=== PATIENT | male | born 1935 | race Caucasian/White ===

== ENCOUNTER 2018-02-14 11:16 | Inpatient (IN) | payer OTHER ==
[2018-02-14] MEDS ORDERED: NA CHLORIDE 0.9% 1,000 ML ONE ×2 (12:03→13:32)
[2018-02-14 12:13] LABS: Absolute Lymphocytes (CBC) 0.6 K/uL (0.7-4.9); Absolute Monocytes 0.8 K/uL (0.1-1.3); Absolute Neutrophil 14.9 K/uL (1.8-8.0); Basophils % 0.3 % (0-1.3); Hematocrit 38.5 % (39.6-49.0); Lymphocytes % 3.9 % (15.3-44.8); MCV 95.7 fL (80-100); MPV 9.9 fL (7.6-11.3); Monocytes % 4.7 % (3.3-12.3); RBC Red Blood Cell Count 4.02 M/uL (4.33-5.43)
[2018-02-14 12:19] LABS: Protime INR 1.13
--- NOTE | 2018-02-14 12:24 | RAD REPORT ---
EXAM DESCRIPTION: RAD - Chest Single View - 02/14/2018 12:15 pm CLINICAL HISTORY: MALAISE Chest pain. COMPARISON: Chest Single View dated 08/17/2016 FINDINGS: Portable technique limits examination quality. The lungs are grossly clear. The heart is normal in size. No displaced fractures. IMPRESSION: No acute intrathoracic process suspected.
[2018-02-14] MEDS ORDERED: CEFTRIAXONE/SWI 1gm 1 GM/10 ML SYR ONE (12:44)
[2018-02-14 12:54] LABS: Urine Bacteria LOADED /HPF (NONE SEEN)
[2018-02-14 12:55] LABS: Urine White Blood Cell Casts DIFF
[2018-02-14 12:55] LABS: Urine Culture Reflex Order NOT NEEDED; Urine Mucus 1+ /HPF (NONE SEEN)
[2018-02-14 12:57] LABS: Blood Morphology Comment NOT SEEN (NOT SEEN); Platelet Estimate ADEQ
--- NOTE | 2018-02-14 13:10 | EDPHYS ---
Physician Documentation [facility] Name: Quang Macedo Age: 82 yrs Sex: Male : 1935 Arrival Date: 02/14/2018 Time: 11:24 Bed 8 Private MD: ED Physician Sravan Hillman HPI: 02/14 13:04 This 82 yrs old Male presents to ER via EMS with complaints of General gs Weakness. 13:04 The patient presents to the emergency department with weakness of the entire body, gs generalized weakness. Onset: The symptoms/episode began/occurred 3 day(s) ago, and became worse and became persistent. Associated signs and symptoms: Pertinent positives: altered mental status. Severity of symptoms: At their worst the symptoms were moderate in the emergency department the symptoms are unchanged. Patient's baseline: Neuro: alert but confused. The patient has experienced similar episodes in the past, a few times. Historical: - Allergies: 11:49 No Known Allergies; ae1 - Home Meds: 11:50 Proscar Oral [Active]; aspirin 81 mg Oral chew 1 tab once daily [Active]; ae1 - PMHx: 14:20 BPH; High Cholesterol; jl7 - PSHx: 14:20 Hernia repair; hemorrhoidectomy; cataract surgery; jl7 - Immunization history:: Adult Immunizations up to date. - Ebola Screening: : Patient denies exposure to infectious person Patient denies travel to an Ebola-affected area in the 21 days before illness onset. - Social history:: Smoking status: Patient/guardian denies using tobacco. ROS: 13:04 All other systems are negative. gs Exam: 13:04 Head/Face: Normocephalic, atraumatic. Eyes: Pupils equal round and reactive to light, gs extra-ocular motions intact. Lids and lashes normal. Conjunctiva and sclera are non-icteric and not injected. Cornea within normal limits. Periorbital areas with no swelling, redness, or edema. ENT: Nares patent. No nasal discharge, no septal abnormalities noted. Tympanic membranes are normal and external auditory canals are clear. Oropharynx with no redness, swelling, or masses, exudates, or evidence of obstruction, uvula midline. Mucous membranes moist. Neck: Trachea midline, no thyromegaly or masses palpated, and no cervical lymphadenopathy. Supple, full range of motion without nuchal rigidity, or vertebral point tenderness. No Meningismus. Chest/axilla: Normal chest wall appearance and motion. Nontender with no deformity. No lesions are appreciated. Cardiovascular: Regular rate and rhythm with a normal S1 and S2. No gallops, murmurs, or rubs. Normal PMI, no JVD. No pulse deficits. Respiratory: Lungs have equal breath sounds bilaterally, clear to auscultation and percussion. No rales, rhonchi or wheezes noted. No increased work of breathing, no retractions or nasal flaring. Back: No spinal tenderness. No costovertebral tenderness. Full range of motion. Skin: Warm, dry with normal turgor. Normal color with no rashes, no lesions, and no evidence of cellulitis. MS/ Extremity: Pulses equal, no cyanosis. Neurovascular intact. Full, normal range of motion. 13:04 Constitutional: The patient appears awake, confused 13:04 ECG was reviewed by the Attending Physician. 13:04 Abdomen/GI: Inspection: distension, that is moderate, in the suprapubic area, Palpation: abdomen is soft and non-tender. 13:04 Neuro: Orientation: Not oriented to time, situation, Motor: is normal, moves all fours, Sensation: no obvious gross deficits. Vital Signs: 11:24 BP 133 / 85; Pulse 91; Resp 16 S; Temp 98.6(O); Pulse Ox 98% on R/A; jl7 12:38 BP 124 / 72; Pulse 78; Resp 21; Pulse Ox 99% on R/A; ae1 13:25 Temp 99(O); Weight 77.11 kg (R); ae1 13:37 BP 117 / 69; Pulse 94; Resp 17; Pulse Ox 98% on R/A; ae1 14:13 BP 115 / 72; Pulse 93; Resp 13; Pulse Ox 98% ; jl7 MDM: 11:43 Patient medically screened. 13:04 Data reviewed: vital signs. Response to treatment: the patient's symptoms have mildly gs improved after treatment, and as a result, I will admit patient. 02/14 11:45 Order name: Urine Microscopic Only; Complete Time: 13:02 02/14 11:45 Order name: Urine Culture 02/14 11:45 Order name: Basic Metabolic Panel 02/14 11:45 Order name: Blood Culture Adult (2) 02/14 11:45 Order name: CBC with Diff; Complete Time: 13:02 02/14 11:45 Order name: Lactate 02/14 11:45 Order name: LFT's 02/14 11:45 Order name: Lipase 02/14 11:45 Order name: Procalcitonin; Complete Time: 13:02 02/14 11:45 Order name: Protime (+inr); Complete Time: 13:02 02/14 11:45 Order name: Troponin (emerg Dept Use Only) 02/14 12:18 Order name: CBC Smear Scan [facility] 02/14 12:49 Order name: Urine Dipstick--Ancillary (enter results) 02/14 12:50 Order name: Urine Dipstick-Ancillary [facility] 02/14 11:45 Order name: Chest Single View XRAY; Complete Time: 13:02 02/14 11:45 Order name: Accucheck; Complete Time: 11:50 02/14 11:45 Order name: Cardiac monitoring; Complete Time: 11:51 02/14 11:45 Order name: EKG - Nurse/Tech; Complete Time: 11:51 02/14 11:45 Order name: IV Saline Lock - Large Bore; Complete Time: 11:51 02/14 11:45 Order name: Labs collected and sent; Complete Time: 11:51 02/14 11:45 Order name: O2 Per Protocol; Complete Time: 11:51 02/14 11:45 Order name: O2 Sat Monitoring; Complete Time: 11:52 02/14 12:56 Order name: Manual Differential; Complete Time: 13:02 [facility] 02/14 12:59 Order name: EKG Electrocardiogram [facility] 02/14 13:15 Order name: NPO [facility] 02/14 15:11 Order name: Glucose, Ancillary Testing [facility] 02/14 11:45 Order name: Urine Dipstick-Ancillary (obtain specimen); Complete Time: 12:35 EC:04 Rate is 86 beats/min. Rhythm is regular. FL interval is normal. QRS interval is normal. gs T waves are Normal. No ST changes noted. Clinical impression: Abnormal EKG without significant change. Interpreted by me. Administered Medications: 12:00 Drug: NS 0.9% 1000 ml Route: IV; Rate: 1 bolus; Site: right forearm; ae1 13:33 Follow up: IV Status: Completed infusion ae1 12:46 Drug: Rocephin - (cefTRIAXone) 1 grams Route: IVPB; Infused Over: 30 mins; Site: right ae1 forearm; 13:20 Follow up: IV Status: Completed infusion ae1 13:33 Drug: NS 0.9% 1000 ml Route: IV; Rate: 1 bolus; Site: right forearm; ae1 14:30 Follow up: IV Status: Completed infusion jl7 14:05 Drug: Tobramycin 80 mg Route: IVPB; Infused Over: 30 mins; Site: right forearm; jl7 14:35 Follow up: Response: No adverse reaction; IV Status: Completed infusion jl7 Point of Care Testing: Blood Glucose: 11:49 Blood Glucose: 111 mg/dL; ae1 Ranges: Critical Glucose Levels:Adult <50 mg/dl or >400 mg/dl <40 mg/dl or >180 mg/dl Disposition: 02/14/18 13:09 Hospitalization ordered by Delon Shields for Inpatient Admission. Preliminary diagnosis are Other specified sepsis, Acute tubulo-interstitial nephritis. - Bed requested for Telemetry/MedSurg (Inpatient). - Status is Inpatient Admission. ae1 - Condition is Stable. - Problem is new. - Symptoms have improved. UTI on Admission? Yes Critical care time excluding procedures: 13:04 Critical care time: Bedside Care: 10 minutes, Consultation: 10 minutes, Family gs Intervention: 10 minutes. Total time: 30 minutes Signatures: Dispatcher [employer] EDMS Pati Corrales Andrea, RN RN ae1 Melyssa Guerrier RN RN jl7 Sravan Hillman MD MD gs Corrections: (The following items were deleted from the chart) 14:03 13:09 Hospitalization Ordered by Delon Shields MD for Inpatient Admission. Preliminary bd diagnosis is Other specified sepsis; Acute tubulo-interstitial nephritis. Bed requested for Telemetry/MedSurg (Inpatient). Status is Inpatient Admission. Condition is Stable. Problem is new. Symptoms have improved. UTI on Admission? Yes. gs 15:21 14:03 02/14/2018 13:09 Hospitalization Ordered by Delon Shields MD for Inpatient ae1 Admission. Preliminary diagnosis is Other specified sepsis; Acute tubulo-interstitial nephritis. Bed requested for Telemetry/MedSurg (Inpatient). Status is Inpatient Admission. Condition is Stable. Problem is new. Symptoms have improved. UTI on Admission? Yes. bd
--- NOTE | 2018-02-14 13:10 | ER ---
Nurse's Notes [facility] Name: Quang Macedo Age: 82 yrs Sex: Male : 1935 Arrival Date: 02/14/2018 Time: 11:24 Bed 8 Private MD: Diagnosis: Other specified sepsis;Acute tubulo-interstitial nephritis Presentation: 02/14 11:24 Presenting complaint: EMS states: Pt's reports weakness for the past 2 days. She jl7 thinks he has a kidney infection. Pt has an indwelling catheter. Transition of care: patient was not received from another setting of care. Onset of symptoms was February 12, 2018. Risk Assessment: Do you want to hurt yourself or someone else? Patient reports no desire to harm self or others. Initial Sepsis Screen: Does the patient meet any 2 criteria? No. Patient's initial sepsis screen is negative. Does the patient have a suspected source of infection? No. Patient's initial sepsis screen is negative. Care prior to arrival: Medication(s) given: Normal saline infusion, 150 ml IV initiated. 22 GA, in the left antecubital area, Glucose check: 140. 11:24 Method Of Arrival: EMS: [facility] jl7 11:24 Acuity: MELODIE 3 jl7 Historical: - Allergies: 11:49 No Known Allergies; ae1 - Home Meds: 11:50 Proscar Oral [Active]; aspirin 81 mg Oral chew 1 tab once daily [Active]; ae1 - PMHx: 14:20 BPH; High Cholesterol; jl7 - PSHx: 14:20 Hernia repair; hemorrhoidectomy; cataract surgery; jl7 - Immunization history:: Adult Immunizations up to date. - Ebola Screening: : Patient denies exposure to infectious person Patient denies travel to an Ebola-affected area in the 21 days before illness onset. - Social history:: Smoking status: Patient/guardian denies using tobacco. Screenin:39 Abuse screen: Denies threats or abuse. Nutritional screening: No deficits noted. ae1 Tuberculosis screening: No symptoms or risk factors identified. Fall Risk No fall in past 12 months (0 pts). Secondary diagnosis (15 points) dementia, IV access (20 points). Ambulatory Aid- None/Bed Rest/Nurse Assist (0 pts). Gait- Weak (10 pts.). Mental Status- Overestimates/Forgets Limitations (15 pts.). Assessment: 11:30 General: Appears uncomfortable, slender, unkempt, Behavior is cooperative, anxious, ae1 Smells of urine. Pain: Unable to use pain scale. Patient is disoriented. Neuro: Level of Consciousness is awake, confused, Oriented to person. Cardiovascular: Heart tones S1 S2 present Patient's skin is warm and dry. Respiratory: Airway is patent Respiratory effort is even, unlabored, shallow, Respiratory pattern is regular, symmetrical. GI: Abdomen is round distended, Bowel sounds present X 4 quads. : Spencer catheter in place,no plugged, no drainage appliance in place. EENT: No signs and/or symptoms were reported regarding the EENT system. Patient appears [place] hearing aides in place. . Derm: Skin is pale. Musculoskeletal: Reports General weakness. 13:07 Reassessment: Patient appears more relaxed, is still at bedside. ae1 14:00 Reassessment: No changes from previously documented assessment. Patient and/or family jl7 updated on plan of care and expected duration. Pain level reassessed. Vital Signs: 11:24 BP 133 / 85; Pulse 91; Resp 16 S; Temp 98.6(O); Pulse Ox 98% on R/A; jl7 12:38 BP 124 / 72; Pulse 78; Resp 21; Pulse Ox 99% on R/A; ae1 13:25 Temp 99(O); Weight 77.11 kg (R); ae1 13:37 BP 117 / 69; Pulse 94; Resp 17; Pulse Ox 98% on R/A; ae1 14:13 BP 115 / 72; Pulse 93; Resp 13; Pulse Ox 98% ; jl7 ED Course: 11:24 Patient arrived in ED. jl7 11:27 Triage completed. jl7 11:38 Sravan Hillman MD is Attending Physician. gs 11:42 Melyssa Guerrier RN is Primary Nurse. jl7 11:53 EKG done, by helicopter technician. reviewed by Sravan Hillman MD. at1 12:09 X-ray completed. Portable x-ray completed in exam room. Patient tolerated procedure ag1 well. 12:10 Chest Single View XRAY In Process Unspecified. EDMS 12:35 Inserted saline lock: 22 gauge in right forearm, using aseptic technique. Blood jl7 collected. 12:35 Spencer cath inserted, using sterile technique, 16 Fr., by ky, balloon inflated, to ae1 gravity drainage, urine specimen collected. other 1500 mls dark brown cloudy urine drained into appliance collection bag. Existing Spencer catheter removed. Foul odor, purulent, and sanguineous discharge upon removal. 12:39 Placed in gown. Bed in low position. Call light in reach. Side rails up X2. Adult w/ ae1 patient. desk monitor on. Pulse ox on. NIBP on. Warm blanket given. Pillow given. 12:40 Arm band placed on right wrist. EKG completed in triage. Results shown to MD. ae1 13:08 Delon Shields MD is Hospitalizing Provider. gs 13:17 Notified ED physician of a critical lab result(s). Lactate=2.2. iw 14:43 No provider procedures requiring assistance completed. Patient admitted, IV remains in jl7 place. Administered Medications: 12:00 Drug: NS 0.9% 1000 ml Route: IV; Rate: 1 bolus; Site: right forearm; ae1 13:33 Follow up: IV Status: Completed infusion ae1 12:46 Drug: Rocephin - (cefTRIAXone) 1 grams Route: IVPB; Infused Over: 30 mins; Site: right ae1 forearm; 13:20 Follow up: IV Status: Completed infusion ae1 13:33 Drug: NS 0.9% 1000 ml Route: IV; Rate: 1 bolus; Site: right forearm; ae1 14:30 Follow up: IV Status: Completed infusion jl7 14:05 Drug: Tobramycin 80 mg Route: IVPB; Infused Over: 30 mins; Site: right forearm; jl7 14:35 Follow up: Response: No adverse reaction; IV Status: Completed infusion jl7 Point of Care Testing: Blood Glucose: 11:49 Blood Glucose: 111 mg/dL; ae1 Ranges: Outcome: 13:09 Decision to Hospitalize by Provider. gs 14:43 Admitted to Tele accompanied by tech, family with patient, via stretcher, room 413, jl7 with chart, Report called to RICK Chew 14:43 Condition: stable 14:43 Discharge instructions given to patient, family, Instructed on the need for admit, Demonstrated understanding of instructions. 15:21 Patient left the ED. ae1 Signatures: Dispatcher [employer] EDMS Mojgan Chery, RN RN iw Adela mckinney, car starter EKG Tat1 Riri Lama ag1 Justino Fields RN RN ae1 Melyssa Guerrier RN RN jl7 Sravan Hillman MD MD gs Corrections: (The following items were deleted from the chart) 13:34 13:10 Notified ED physician of a critical lab result(s). Lactate=2.2 [facility] 14:44 12:35 Inserted ae1 jl7
[2018-02-14] MEDS ORDERED: ACETAMINOPHEN 500 MG TAB PO PRN (13:13)
[2018-02-14 13:24] LABS: Albumin 3.7 g/dL (3.4-5.0); Bilirubin Direct 0.2 mg/dL (0-0.2); Bilirubin Total 0.7 mg/dL (0.2-1.0); Potassium 4.4 mmol/L (3.5-5.1); Protein, Total 7.3 g/dL (6.4-8.2)
[2018-02-14] MEDS: D5 0.45 NS 1,000 ML IV SCH ×3 (14:00→22:09)
[2018-02-14] MEDS ORDERED: TOBRAMYCIN INJ 80 MG in NA CHLORIDE 0.9% 100 ML IV ONE (14:00)
[2018-02-14 14:03] LABS: Urine Blood 2+ (NEG); Urine Glucose NEGATIVE (NEG); Urine Protein 3+ (NEG); Urine Specific Gravity 1.015 (1.005-1.030); Urine pH >8.5 (5.0-7.0)
--- NOTE | 2018-02-14 14:51 | EKG ---
Test Date: 2018-02-14 Test Time: 11:42:06 Bracelet Form Coverer: RAUL MEASUREMENT RESULTS: Intervals: Rate: 86 IA: 150 QRSD: 82 QT: 374 QTc: 447 [place]: P: 36 IA: 150 QRS: 14 T: 52 INTERPRETIVE STATEMENTS: Normal sinus rhythm Nonspecific ST and T wave abnormality Abnormal ECG Compared to ECG 08/11/2011 06:45:09 Sinus bradycardia no longer present ST (T wave) deviation still present Electronically Signed On 02-14-18 14:50:12 CDT by Alexis Johnson
[2018-02-14 17:08] VITALS: BMI 23.7
--- NOTE | 2018-02-14 18:17 | P.HP ---
Certification for Inpatient Patient admitted to: Inpatient With expected LOS: >2 Midnights Practitioner: I am a practitioner with admitting privileges, knowledge of patient current condition, hospital course, and medical plan of care. Services: Services provided to patient in accordance with Admission requirements found in Title 42 Section 412.3 of the Code of Federal Regulations Patient History Date of Service: 02/14/18 Reason for admission: CONFUSED, WEAK History of Present Illness: MR. CERVANTES COMES WITH CONFUSION, DISORIENTATION, WEAKNESS. HE HAS BAIG AND IT IS TO BE DRAINED . HE HAD RETENTION OF URINE ABOUT 11 ML AND UTI WITH SEVERE DEHYDRATION ON LAB. Allergies No Known Allergies Allergy (Verified 02/14/18 17:49) Home Medications: Aspirin Chewable [Aspirin Chewable*] 81 mg PO DAILY 02/14/18 Bacillus Coagulans [Probiotic] 1 each PO DAILY 02/14/18 Multivit-Min/FA/Lycopen/Lutein [Centrum Silver Men Tablet] 1 each PO DAILY 02/14 Simvastatin [Zocor] 80 mg PO BEDTIME 02/14/18 - Past Medical/Surgical History Has patient received pneumonia vaccine in the past: Yes Diabetic: No -: hyperlipidemia -: BPH -: DEMENTIA -: 3 hernia repair -: hemmroidectomy -: cataract sx [place] EYE - Social History Smoking Status: Never smoker Alcohol use: No CD- Drugs: No Caffeine use: Yes Place of Residence: Home Review of Systems 10-point ROS is otherwise unremarkable Integumentary: Other, As per HPI Neurological: Confusion Physical Examination - Vital Signs Temperature: 99 F Blood Pressure: 115/72 Pulse: 93 Respirations: 13 - Physical Exam General: Alert, Mild distress, Confused, Other (DEHYDRATION.) HEENT: Atraumatic, PERRLA, Mucous membr. moist/pink, EOMI, Sclerae nonicteric Neck: Supple, 2+ carotid pulse no bruit, No LAD, Without JVD or thyroid abnormality Respiratory: Clear to auscultation bilaterally, Normal air movement Cardiovascular: Regular rate/rhythm, Normal S1 S2 Gastrointestinal: Normal bowel sounds, No tenderness Musculoskeletal: No tenderness Integumentary: No rashes Neurological: Other Lymphatics: No axilla or inguinal lymphadenopathy - Studies Laboratory Data (last 24 hrs) 02/14/18 11:55: PT 13.3 H, INR 1.13 02/14/18 11:55: WBC 16.3 H, Hgb 12.9 L, Hct 38.5 L, Plt Count 201 02/14/18 11:55: Sodium 139, Potassium 4.4, BUN 63 H, Creatinine 2.30 H, Glucose 115 H, Total Bilirubin 0.7, AST 27, ALT 24, Alkaline Phosphatase 110, Lipase 55 L Assessment and Plan - Problems (Diagnosis) (1) UTI (urinary tract infection) Current Visit: Yes Status: Acute Plan: IV ROCEPHIN IV FLUIDS. Qualifiers: Indwelling urinary catheter type: indwelling urethral catheter (2) Acute renal failure Current Visit: Yes Status: Acute Plan: IV D5 HALF 125 ML PER HOUR DAILY LAB FU DAILY AVOID LOVENOX, HAS HEMATURIA (3) Acute retention of urine Onset Date: 08/17/16 Current Visit: No Status: Chronic Plan: DR PONCE FOR FU - Advance Directives Does patient have a Living Will: Yes Does patient have a Durable POA for Healthcare: Yes
[2018-02-15] MEDS: D5 0.45 NS 1,000 ML IV SCH ×3 (05:20→21:25)
[2018-02-15] MEDS: CEFTRIAXONE/SWI 1gm 1 GM/10 ML SYR IV SCH (09:17)
[2018-02-15] MEDS: ASPIRIN 81 MG CHEWABLE TABLET PO SCH (09:17)
--- NOTE | 2018-02-15 17:59 | P.PN ---
Subjective Date of Service: 02/15/18 Chief Complaint: CONFUSED, WEAK Subjective: Improving (still not able to recognize .) Review of Systems 10-point ROS is otherwise unremarkable General: Weakness, Malaise Physical Examination - Vital Signs Temperature: 99.1 F Blood Pressure: 136/65 Pulse: 84 Respirations: 18 Pulse Ox (%): 96 - Physical Exam General: Cachectic, Mild distress, Confused HEENT: Atraumatic, PERRLA, EOMI Neck: Supple, JVD not distended Respiratory: Clear to auscultation bilaterally, Normal air movement Cardiovascular: Regular rate/rhythm, Normal S1 S2 Gastrointestinal: Normal bowel sounds, No tenderness Musculoskeletal: No tenderness Integumentary: No rashes Neurological: Abnormal speech (sluggish.), Abnormal strength (gen weak.) Lymphatics: No axilla or inguinal lymphadenopathy - Studies Microbiology Data (last 24 hrs): 02/14/18 12:45 Blood - Blood Anaerobic Blood Culture - Final Medications List Reviewed: Yes Assessment And Plan - Current Problems (Diagnosis) (1) UTI (urinary tract infection) Current Visit: Yes Status: Acute Plan: IV ROCEPHIN IV FLUIDS. Qualifiers: Indwelling urinary catheter type: indwelling urethral catheter (2) Acute renal failure Current Visit: Yes Status: Acute Plan: IV D5 HALF 125 ML PER HOUR DAILY LAB FU DAILY AVOID LOVENOX, HAS HEMATURIA (3) Acute retention of urine Onset Date: 08/17/16 Current Visit: No Status: Chronic Plan: DR PONCE FOR FU (4) Alteration in cognition Current Visit: Yes Status: Acute Plan: He may have had a stroke in addition to obtundation from sepsis MRI pending.
[2018-02-15] MEDS ORDERED: LORazepam 2 MG/ML VIAL IV ONE (20:38)
--- NOTE | 2018-02-15 21:19 | RAD REPORT ---
EXAM DESCRIPTION: MRI - Brain Wo Cont - 02/15/2018 9:02 pm CLINICAL HISTORY: Alteration of awareness/confusion COMPARISON: 2014 TECHNIQUE: Axial, sagittal, and coronal magnetic images of the brain were obtained. Contrast was not requested FINDINGS: Diffuse cerebral atrophy is seen. No abnormal signal is present within the brain. Diffusion-weighted/ADC mapping does not reveal evidence of acute infarction. The ventricles are normal caliber. An extra-axial fluid collection is not present The sinuses and mastoids are clear. IMPRESSION: No acute intracranial abnormality is noted
[2018-02-16 04:16] LABS: Absolute Lymphocytes (CBC) 0.2 K/uL (0.7-4.9); Absolute Monocytes 0.4 K/uL (0.1-1.3); Absolute Neutrophil 9.8 K/uL (1.8-8.0); Basophils % 0.2 % (0-1.3); Eosinophils % 0.5 % (0-4.4); Hematocrit 32.5 % (39.6-49.0); Lymphocytes % 2.2 % (15.3-44.8); MCH 33.1 pg (27.0-35.0); MCV 94.4 fL (80-100); MPV 9.6 fL (7.6-11.3); RBC Red Blood Cell Count 3.45 M/uL (4.33-5.43)
[2018-02-16 04:23] LABS: Potassium 3.7 mmol/L (3.5-5.1)
[2018-02-16] MEDS: D5 0.45 NS 1,000 ML IV SCH ×4 (05:42→23:30)
[2018-02-16] MEDS: CEFTRIAXONE/SWI 1gm 1 GM/10 ML SYR IV SCH (09:55)
[2018-02-16] MEDS: ASPIRIN 81 MG CHEWABLE TABLET PO SCH (09:56)
--- NOTE | 2018-02-16 18:09 | P.PN ---
Subjective Date of Service: 02/16/18 Chief Complaint: CONFUSED, WEAK Subjective: Improving (LOT MORE AWAKE, ABLE TO RECOGNIZE FAMILY.) Review of Systems 10-point ROS is otherwise unremarkable General: Weakness, Malaise Physical Examination - Vital Signs Temperature: 99.3 F Blood Pressure: 141/71 Pulse: 76 Respirations: 18 Pulse Ox (%): 95 - Physical Exam General: Alert, Cachectic (NO CHANGES FROM PAST.), Mild distress, Confused HEENT: Atraumatic, PERRLA, EOMI Neck: Supple, JVD not distended Respiratory: Clear to auscultation bilaterally, Normal air movement Cardiovascular: Regular rate/rhythm, Normal S1 S2 Gastrointestinal: Normal bowel sounds, No tenderness Musculoskeletal: No tenderness Integumentary: No rashes Neurological: Normal speech, Normal tone, Normal affect Lymphatics: No axilla or inguinal lymphadenopathy - Studies Microbiology Data (last 24 hrs): 02/14/18 11:55 Blood - Blood Aerobic Blood Culture - Final Escherichia Coli 02/14/18 11:55 Blood - Blood Gram Stain - Final 02/14/18 11:55 Blood - Blood Anaerobic Blood Culture - Final Escherichia Coli 02/14/18 11:55 Blood - Blood Gram Stain - Final 02/14/18 12:45 Blood - Blood Anaerobic Blood Culture - Final Medications List Reviewed: Yes Assessment And Plan - Current Problems (Diagnosis) (1) UTI (urinary tract infection) Current Visit: Yes Status: Acute Plan: IV ROCEPHIN IV FLUIDS. Qualifiers: Indwelling urinary catheter type: indwelling urethral catheter (2) Acute renal failure Current Visit: Yes Status: Acute Plan: IV D5 HALF 125 ML PER HOUR DAILY LAB FU DAILY AVOID LOVENOX, HAS HEMATURIA (3) Acute retention of urine Onset Date: 08/17/16 Current Visit: No Status: Chronic Plan: DR PONCE FOR FU (4) Alteration in cognition Current Visit: Yes Status: Acute Plan: He may have had a stroke in addition to obtundation from sepsis MRI pending. (5) E. coli sepsis Current Visit: Yes Status: Acute Plan: ROCEPHIN SENSITVE BACTERIA WBC IS DOWN TO NORMAL RENAL FUNCTION GREAT ALSO.
[2018-02-16] MEDS: QUETIAPINE 25 MG TAB PO SCH (23:15)
[2018-02-17] MEDS: D5 0.45 NS 1,000 ML IV SCH ×2 (06:24→14:49)
[2018-02-17 06:44] LABS: Absolute Lymphocytes (CBC) 0.8 K/uL (0.7-4.9); Absolute Monocytes 1.1 K/uL (0.1-1.3); Absolute Neutrophil 8.3 K/uL (1.8-8.0); Basophils % 0.2 % (0-1.3); Eosinophils % 4.2 % (0-4.4); Hematocrit 33.5 % (39.6-49.0); Lymphocytes % 7.1 % (15.3-44.8); MCH 32.6 pg (27.0-35.0); MCV 94.8 fL (80-100); Monocytes % 10.3 % (3.3-12.3); RBC Red Blood Cell Count 3.53 M/uL (4.33-5.43)
[2018-02-17 06:50] LABS: Potassium 3.8 mmol/L (3.5-5.1)
[2018-02-17] MEDS: ASPIRIN 81 MG CHEWABLE TABLET PO SCH (08:37)
[2018-02-17] MEDS: CEFTRIAXONE/SWI 1gm 1 GM/10 ML SYR IV SCH (08:37)
--- NOTE | 2018-02-17 13:24 | P.PN ---
Subjective Date of Service: 02/17/18 Primary Care Provider: WEAK, FATIGUE, SEPSIS Chief Complaint: CONFUSED, WEAK Subjective: Improving Review of Systems 10-point ROS is otherwise unremarkable General: Weakness, Malaise Neurological: Confusion (LOT BETTER) Physical Examination - Vital Signs Temperature: 98.0 F Blood Pressure: 118/81 Pulse: 61 Respirations: 16 Pulse Ox (%): 96 - Physical Exam General: Alert, Oriented x2 HEENT: Atraumatic, PERRLA, EOMI Neck: Supple, JVD not distended Respiratory: Clear to auscultation bilaterally, Normal air movement Cardiovascular: Regular rate/rhythm, Normal S1 S2 Gastrointestinal: Normal bowel sounds, No tenderness Musculoskeletal: No tenderness Integumentary: No rashes Neurological: Normal speech, Abnormal strength (MILD DIFFUSE WEAKNESS) Lymphatics: No axilla or inguinal lymphadenopathy - Studies Microbiology Data (last 24 hrs): 02/14/18 12:20 Catheterized Urine [place] Count - Final >100,000 CFU/ML. 02/14/18 12:20 Catheterized Urine - Final Kluyvera Ascorbata Klebsiella Oxytoca Enterococcus Faecalis 02/14/18 12:45 Blood - Blood Aerobic Blood Culture - Final Escherichia Coli 02/14/18 12:45 Blood - Blood Gram Stain - Final 02/14/18 12:45 Blood - Blood Anaerobic Blood Culture - Final 02/14/18 11:55 Blood - Blood Aerobic Blood Culture - Final Escherichia Coli 02/14/18 11:55 Blood - Blood Gram Stain - Final 02/14/18 11:55 Blood - Blood Anaerobic Blood Culture - Final Escherichia Coli 02/14/18 11:55 Blood - Blood Gram Stain - Final Medications List Reviewed: Yes Assessment And Plan - Current Problems (Diagnosis) (1) UTI (urinary tract infection) Onset Date: 02/17/18 Current Visit: Yes Status: Acute Plan: IV ROCEPHIN IV FLUIDS. STABLE, BETTER. Qualifiers: Indwelling urinary catheter type: indwelling urethral catheter (2) Acute renal failure Onset Date: 02/17/18 Current Visit: Yes Status: Acute Plan: IV D5 HALF 125 ML PER HOUR DAILY LAB FU DAILY AVOID LOVENOX, HAS HEMATURIA IMPROVED TO NORMAL LOVENOX STARTED. (3) Acute retention of urine Onset Date: 08/17/16 Current Visit: No Status: Chronic Plan: DR PONCE FOR FU (4) Alteration in cognition Onset Date: 02/17/18 Current Visit: Yes Status: Acute Plan: He may have had a stroke in addition to obtundation from sepsis MRI pending. (5) E. coli sepsis Onset Date: 02/17/18 Current Visit: Yes Status: Acute Plan: ROCEPHIN SENSITVE BACTERIA WBC IS DOWN TO NORMAL RENAL FUNCTION GREAT ALSO.
--- NOTE | 2018-02-17 16:23 | CON ---
History Of Present Illness: This is a pleasant 82-year-old gentleman, who normally has a chronic Fol ey catheter. He used to look well at home. He was in good state of health until a few days ago and the states he became kind of confused and thought he had a urinary tract infection, so she caugh t me in the stout way on Tuesday while I was doing my surgical rounds and told her to go ahead and reno ng him in the office to get a culture done. However, when she went home, he was so weak and confused and disoriented, she had to take him to the Emergency Room, where he was found to have a serious uri nary tract infection with pus and also had septicemia. His urine culture showed E. coli in the blood , but not in the urine. In the urine she said he had Klebsiella Kluyveri bacterium, all 3 sensitive to Rocephin which he is on. Allergies: NO KNOWN DRUG ALLERGIES. Home Medication: Aspirin, probiotics, multivitamin, simvastatin. Past Medical History: No diabetes, history of hyperlipidemia, BPH, dementia, hernia repair, hemorrho idectomy, cataract surgery, bilateral eye. Social History: Smoking status; never smoked. Alcohol; none. Drugs; none caffeine; yes. Resides a t home. Review of Systems: A 10-point review of systems otherwise as above. Physical Examination: Vital Signs: 97.7, 65, 16, 144/82, sats 95%. Pulse 165. General Appearance: Resting in bed home. and friend present in the room. He is alert and orie nted x3. HEENT: Atraumatic, normocephalic. Lungs: Clear. Heart: S1-S2. Abdomen: Soft, nontender. Legs: Normal range of motion. Spencer catheter is draining pretty much clear urine and little bit of pus seen in the tube, but the nurse say he developed more when they changed his catheter. He is rece iving Rocephin. Laboratory Data: Shows that his white count is down from 16,000-10,600. Coagulation studies normal. Chemistry; sodium 144, potassium 3.8, chloride 111, carbon dioxide 23, BUN 26, creatinine 1.0, GFR 71, glucose 97, calcium 7.7. Urine culture as mentioned above. Assessment: Two urinary tract infections and 1 bacteremia infection both off since the use of Roceph in. I would recommend a PICC line for the patient and 14-21 days of IV antibiotics at home, can be g iven once a day, and keep the Spencer drain to a bag. Note, Spencer plugged at this time. We will re-ev aluate the patient in a month in the office. DESMOND/DIONISIO Voice ID: [id number] Report ID: [id number]
[2018-02-17] MEDS: ENOXAPARIN 40 MG/0.4 ML SQ SCH (16:44)
[2018-02-17] MEDS ORDERED: QUETIAPINE 25 MG TAB PO SCH ×2 (21:00)
[2018-02-17] MEDS: QUETIAPINE 25 MG TAB PO SCH (21:17)
[2018-02-18] MEDS: D5 0.45 NS 1,000 ML IV SCH ×4 (03:20→20:46)
[2018-02-18 06:37] LABS: Absolute Lymphocytes (CBC) 0.8 K/uL (0.7-4.9); Absolute Monocytes 1.3 K/uL (0.1-1.3); Absolute Neutrophil 7.1 K/uL (1.8-8.0); Basophils % 0.4 % (0-1.3); Eosinophils % 3.4 % (0-4.4); Hematocrit 33.4 % (39.6-49.0); Lymphocytes % 8.7 % (15.3-44.8); MCH 32.6 pg (27.0-35.0); MPV 9.3 fL (7.6-11.3); Monocytes % 13.8 % (3.3-12.3); RBC Red Blood Cell Count 3.55 M/uL (4.33-5.43)
[2018-02-18 06:43] LABS: Potassium 4.1 mmol/L (3.5-5.1)
[2018-02-18] MEDS: CEFTRIAXONE/SWI 1gm 1 GM/10 ML SYR IV SCH (08:46)
[2018-02-18] MEDS: ASPIRIN 81 MG CHEWABLE TABLET PO SCH (08:46)
--- NOTE | 2018-02-18 10:10 | P.PN ---
Subjective Date of Service: 02/18/18 Primary Care Provider: WEAK, FATIGUE, SEPSIS Chief Complaint: DOING GREAT NOW. I VABX Subjective: Improving MR CERVANTES NOW IS ABLE TO RECOGNIZE PEOPLE. HE HAS WALKED, EATING VERY WELL AND IS VERY HAPPY. Review of Systems 10-point ROS is otherwise unremarkable General: Weakness, Malaise Genitourinary: As per HPI (BAIG) Physical Examination - Vital Signs Temperature: 98.3 F Blood Pressure: 145/78 Pulse: 59 Respirations: 18 Pulse Ox (%): 95 - Physical Exam General: Alert, In no apparent distress HEENT: Atraumatic, PERRLA, EOMI Neck: Supple, JVD not distended Respiratory: Clear to auscultation bilaterally, Normal air movement Cardiovascular: Regular rate/rhythm, Normal S1 S2 Gastrointestinal: Normal bowel sounds, No tenderness Musculoskeletal: No tenderness Integumentary: No rashes Neurological: Normal speech, Normal tone, Normal affect Lymphatics: No axilla or inguinal lymphadenopathy - Studies Microbiology Data (last 24 hrs): 02/14/18 12:20 Catheterized Urine [place] Count - Final >100,000 CFU/ML. 02/14/18 12:20 Catheterized Urine - Final Kluyvera Ascorbata Klebsiella Oxytoca Enterococcus Faecalis 02/14/18 12:45 Blood - Blood Aerobic Blood Culture - Final Escherichia Coli 02/14/18 12:45 Blood - Blood Gram Stain - Final 02/14/18 12:45 Blood - Blood Anaerobic Blood Culture - Final Medications List Reviewed: Yes Assessment And Plan - Current Problems (Diagnosis) (1) UTI (urinary tract infection) Onset Date: 02/17/18 Current Visit: Yes Status: Acute Plan: IV ROCEPHIN IV FLUIDS. STABLE, BETTER. WBC NORMAL NO SYMPTOMS HE HAS BAIG Qualifiers: Indwelling urinary catheter type: indwelling urethral catheter (2) Acute renal failure Onset Date: 02/17/18 Current Visit: Yes Status: Acute Plan: IV D5 HALF 125 ML PER HOUR DAILY LAB FU DAILY AVOID LOVENOX, HAS HEMATURIA IMPROVED TO NORMAL LOVENOX STARTED. (3) Acute retention of urine Onset Date: 08/17/16 Current Visit: No Status: Chronic Plan: DR PONCE FOR FU THIS IS CHR ISSUE HE HAS TO HAVE BAIG DRAINED AND HE DID NOT REALIZE HIS BAIG WAS CLOGGED. I ASKED TO WATCH URINE AMOUNT DAILY AND IF IF STOPS THEN GET ATTENTION BEFORE HE GETS SEPTIC. (4) Alteration in cognition Onset Date: 02/17/18 Current Visit: Yes Status: Acute Plan: He may have had a stroke in addition to obtundation from sepsis MRI pending. (5) E. coli sepsis Onset Date: 02/17/18 Current Visit: Yes Status: Acute Plan: ROCEPHIN SENSITVE BACTERIA WBC IS DOWN TO NORMAL RENAL FUNCTION GREAT ALSO.
[2018-02-18] MEDS: ENOXAPARIN 40 MG/0.4 ML SQ SCH (16:28)
[2018-02-18] MEDS: QUETIAPINE 25 MG TAB PO SCH (20:40)
[2018-02-18] MEDS: ATORVASTATIN 40 MG TAB PO SCH (20:41)
[2018-02-18] MEDS ORDERED: HOME MED 1 EA UNK (Simvastatin [Zocor] 80 MG) PO SCH (21:00)
[2018-02-19 07:03] LABS: Absolute Lymphocytes (CBC) 1.5 K/uL (0.7-4.9); Absolute Monocytes 1.4 K/uL (0.1-1.3); Basophils % 0.7 % (0-1.3); Eosinophils % 4.7 % (0-4.4); Lymphocytes % 14.4 % (15.3-44.8); MCH 32.4 pg (27.0-35.0); MCV 94.3 fL (80-100); MPV 8.9 fL (7.6-11.3); Monocytes % 13.3 % (3.3-12.3)
[2018-02-19 07:11] LABS: Potassium 3.7 mmol/L (3.5-5.1)
[2018-02-19] MEDS: ASPIRIN 81 MG CHEWABLE TABLET PO SCH (09:14)
[2018-02-19] MEDS: CEFTRIAXONE/SWI 1gm 1 GM/10 ML SYR IV SCH (09:14)
[2018-02-19] MEDS: D5 0.45 NS 1,000 ML IV SCH (09:18)
[2018-02-19] MEDS: CIPROFLOXACIN HCL 250 MG TAB PO SCH ×2 (11:57→20:45)
[2018-02-19] MEDS ORDERED: AMPICILLIN TRIHYDRATE 250 MG CAP PO SCH (12:00)
[2018-02-19] MEDS: ENOXAPARIN 40 MG/0.4 ML SQ SCH (18:46)
[2018-02-19] MEDS: QUETIAPINE 25 MG TAB PO SCH (20:45)
[2018-02-19] MEDS: ATORVASTATIN 40 MG TAB PO SCH (20:45)
[2018-02-20 04:16] LABS: Hematocrit 32.7 % (39.6-49.0); MCH 32.8 pg (27.0-35.0); MCV 93.3 fL (80-100)
[2018-02-20 04:17] LABS: Absolute Lymphocytes (CBC) 1.8 K/uL (0.7-4.9); Absolute Monocytes 1.2 K/uL (0.1-1.3); Absolute Neutrophil 6.5 K/uL (1.8-8.0); Basophils % 0.5 % (0-1.3); Lymphocytes % 17.5 % (15.3-44.8); MPV 8.8 fL (7.6-11.3); Monocytes % 11.4 % (3.3-12.3)
[2018-02-20 04:27] LABS: Potassium 3.6 mmol/L (3.5-5.1)
[2018-02-20] MEDS: ASPIRIN 81 MG CHEWABLE TABLET PO SCH (08:51)
[2018-02-20] MEDS: CEFTRIAXONE/SWI 1gm 1 GM/10 ML SYR IV SCH (08:51)
[2018-02-20] MEDS: CIPROFLOXACIN HCL 250 MG TAB PO SCH (08:51)
--- NOTE | 2018-02-20 12:23 | P.DS ---
Admission Date: 02/14/18 Discharge Date: 02/20/18 Primary Care Provider: WEAK, FATIGUE, SEPSIS Disposition: ROUTINE DISCHARGE Discharge Condition: FAIR Reason for Admission: DOING GREAT NOW. I VABX - Problems (1) UTI (urinary tract infection) Onset Date: 02/17/18 Status: Acute Qualifiers: Indwelling urinary catheter type: indwelling urethral catheter (2) Acute renal failure Onset Date: 02/17/18 Status: Acute (3) Acute retention of urine Onset Date: 08/17/16 Status: Chronic (4) Alteration in cognition Onset Date: 02/17/18 Status: Acute (5) E. coli sepsis Onset Date: 02/17/18 Status: Acute Brief History of Present Illness: MR. CERVANTES COMES WITH CONFUSION, DISORIENTATION, WEAKNESS. HE HAS BAIG AND IT IS TO BE DRAINED . HE HAD RETENTION OF URINE ABOUT 11 ML AND UTI WITH SEVERE DEHYDRATION ON LAB. DID GREAT WITH IV ABX ON ORAL CIPRO NOW S FOR ALL BACTERIAL DC DAMIAN E FU WITH FOR BAIG MX. Vital Signs/Physical Exam: Temp Pulse Resp BP Pulse Ox 97.1 F 59 12 147/70 H 96 02/20/18 08:00 02/20/18 08:00 02/20/18 08:00 02/20/18 08:00 02/20/18 08:00 Laboratory Data at Discharge: WBC 10.1 K/uL (4.3-10.9) 02/20/18 03:44 Hgb 11.5 g/dL (13.6-17.9) L 02/20/18 03:44 Hct 32.7 % (39.6-49.0) L 02/20/18 03:44 Plt Count 191 K/uL (152-406) D 02/20/18 03:44 PT 13.3 SECONDS (9.5-12.5) H 02/14/18 11:55 INR 1.13 02/14/18 11:55 Sodium 142 mmol/L (136-145) 02/20/18 03:44 Potassium 3.6 mmol/L (3.5-5.1) 02/20/18 03:44 BUN 20 mg/dL (7-18) H 02/20/18 03:44 Creatinine 0.90 mg/dL (0.55-1.3) 02/20/18 03:44 Glucose 99 mg/dL (74-106) 02/20/18 03:44 Total Bilirubin 0.7 mg/dL (0.2-1.0) 02/14/18 11:55 AST 27 U/L (15-37) 02/14/18 11:55 ALT 24 U/L (12-78) 02/14/18 11:55 Alkaline Phosphatase 110 U/L (45-117) 02/14/18 11:55 Lipase 55 U/L (73-393) L 02/14/18 11:55 Home Medications: Bacillus Coagulans [Probiotic] 1 each PO DAILY 02/14/18 Multivit-Min/FA/Lycopen/Lutein [Centrum Silver Men Tablet] 1 each PO DAILY 02/14 Simvastatin [Zocor] 80 mg PO BEDTIME 02/14/18 Ciprofloxacin HCl [Cipro 250 MG Tablet*] 250 mg PO Q12HR #20 tab 02/20/18 New Medications: Ciprofloxacin HCl [Cipro 250 MG Tablet*] 250 mg PO Q12HR #20 tab Diet: Regular Activity: Fall precautions Followup: Jorgito Becker MD [ACTIVE - CAN ADMIT] - Delon Shields MD [Primary Care Provider] -
[2018-02-20 12:46] VITALS: O2SAT 96
[2018-02-20 13:34] VITALS: BP 130/65; TEMP 97
== END 2018-02-20 12:08 | disposition home or self-care (01) | DRG 698 ==
LOC: ER 11:16 → 4TH 13:14
PROVIDERS: ADMIT Internal Medicine; ATTEND Internal Medicine
DX: T83.518A Infection and inflammatory reaction due to other urinary catheter, initial encounter (principal); A41.51 Sepsis due to Escherichia coli [E. coli]; N17.9 Acute kidney failure, unspecified; N39.0 Urinary tract infection, site not specified; E86.0 Dehydration; Z79.82 Long term (current) use of aspirin; N40.1 Benign prostatic hyperplasia with lower urinary tract symptoms; R33.8 Other retention of urine; E78.5 Hyperlipidemia, unspecified; F03.90 Unspecified dementia, unspecified severity, without behavioral disturbance, psychotic disturbance, mood disturbance, and anxiety; R41.82 Altered mental status, unspecified
CPT/HCPCS: 36415; 51702; 70551; 71045; 80048; 80076; 81003; 81015; 82962; 83605; 83690; 84145; 84484; 85025; 85610; 87040; 87077; 87086; 87088; 87186; 87205; 93005; 96361; 96365; 96367; 97163; 99285; J0696; J1650; J7030

== ENCOUNTER 2018-10-14 08:23 | Emergency (ER) | payer OTHER ==
[2018-10-14] MEDS ORDERED: ONDANSETRON 4 MG/2 ML VIAL ONE (08:58)
[2018-10-14 09:01] LABS: Absolute Lymphocytes (CBC) 0.8 K/uL (0.7-4.9); Absolute Monocytes 1.1 K/uL (0.1-1.3); Absolute Neutrophil 18.7 K/uL (1.8-8.0); Basophils % 0.4 % (0-1.3); Eosinophils % 0.1 % (0-4.4); Hematocrit 37.2 % (39.6-49.0); MPV 8.1 fL (7.6-11.3); Monocytes % 5.5 % (3.3-12.3); RBC Red Blood Cell Count 4.27 M/uL (4.33-5.43)
[2018-10-14 09:17] LABS: Albumin 3.1 g/dL (3.4-5.0); Bilirubin Direct 0.2 mg/dL (0-0.2); Bilirubin Total 0.5 mg/dL (0.2-1.0); Potassium 3.9 mmol/L (3.5-5.1)
[2018-10-14] MEDS ORDERED: CEFTRIAXONE/SWI 1gm 1 GM/10 ML SYR ONE (09:26)
[2018-10-14 09:30] LABS: Urine Blood 3+ (NEG); Urine Glucose NEGATIVE (NEG); Urine Protein 2+ (NEG); Urine Specific Gravity 1.025 (1.005-1.030)
[2018-10-14 09:34] LABS: Urine Bacteria >50 /HPF (NONE SEEN); Urine Culture Reflex Order NOT NEEDED; Urine RBC >50 /HPF (NONE SEEN)
[2018-10-14 09:55] LABS: Anisocytosis 1+; Blood Morphology Comment NOTED (NOT SEEN); Platelet Estimate ADEQ
[2018-10-14 09:58] LABS: Burr Cells 1+
--- NOTE | 2018-10-14 10:56 | RAD REPORT ---
EXAM DESCRIPTION: CTAbdomen Pelvis W Contrast - 10/14/2018 10:40 am CLINICAL HISTORY: Abdominal pain. ABDOMINAL DISTENTION COMPARISON: Abdomen Pelvis W Contrast dated 08/17/2016 TECHNIQUE: Biphasic CT imaging of the abdomen and pelvis was performed with 100 ml non-ionic IV cont rast. All CT scans are performed using dose optimization technique as appropriate and may include automated exposure control or mA/KV adjustment according to patient size. FINDINGS: Trace pleural fluid is present bilaterally. Mild linear subsegmental atelectasis is presen t in the left lung base. Small hiatal hernia is present. Mild diffuse fatty liver is noted. A tiny low-density lesion in the right lobe of the liver is presen t measuring 5 mm, nonspecific but likely a small cyst. The spleen, pancreas, adrenal glands and kidne ys show no aggressive findings. Cysts are present in both kidneys, benign in appearance. Multiple dilated small bowel loops are present in the central abdomen. The dilated small bowel loops maximally measure 5 cm. Point of transition is noted in the central abdomen (image 58/97) this appear s to be related or at the site of ill-defined soft tissue which is extending superiorly from the urin vandana bladder. A large irregular bladder mass is suspected measuring 10.2 x 6.4 cm. A Spencer catheter is present in the bladder. A large amount of stool is retained in the rectum. The appendix is normal. P rominent sigmoid diverticulosis coli without diverticulitis No evidence of significant lymphadenopath y. No suspicious bony findings. 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 The mass appears t o extend outside the bladder wall superiorly into the small bowel mesenteric fat and contributes to a moderately severe mechanical small bowel obstruction. Cystoscopy would be advised for tissue diagnos is. Rectal fecal impaction.
--- NOTE | 2018-10-14 11:29 | ER ---
Nurse's Notes [facility] Name: Quang Macedo Age: 83 yrs Sex: Male : 1935 Arrival Date: 10/14/2018 Time: 08:26 Bed 5 Private MD: Delon Shields V Diagnosis: Mechanical Small bowel obstruction;Bladder mass;Urinary tract infection, site not specified Presentation: 10/14 08:39 Presenting complaint: states: he had abdominal distention that started yesterday, hj reports vomiting x 2; denies fever and chills;. Transition of care: patient was not received from another setting of care. Onset of symptoms was October 14, 2018. Risk Assessment: Do you want to hurt yourself or someone else? Patient reports no desire to harm self or others. Initial Sepsis Screen: Does the patient meet any 2 criteria? Yes Does the patient have a suspected source of infection? Yes:. Care prior to arrival: None. 08:39 Method Of Arrival: Ambulatory 08:39 Acuity: MELODIE 3 hj Triage Assessment: 08:41 General: Appears in no apparent distress. uncomfortable, Behavior is calm, cooperative, hj appropriate for age. Pain: Complains of pain in abdomen. GI: Reports bloating, vomiting. : No signs and/or symptoms were reported regarding the genitourinary system. Derm: No signs and/or symptoms reported regarding the dermatologic system. Musculoskeletal: No signs and/or symptoms reported regarding the musculoskeletal system. Historical: - Allergies: 08:41 No Known Allergies; hj - Home Meds: 08:41 aspirin 81 mg Oral chew 1 tab once daily [Active]; Proscar Oral [Active]; - PMHx: 08:41 BPH; High Cholesterol; - PSHx: 08:41 Hernia repair; hemorrhoidectomy; cataract surgery; hj - Immunization history:: Adult Immunizations up to date. - Social history:: Smoking status: Patient/guardian denies using tobacco, Patient/guardian denies using alcohol. - Ebola Screening: : Patient negative for fever greater than or equal to 101.5 degrees Fahrenheit, and additional compatible Ebola Virus Disease symptoms Patient denies exposure to infectious person Patient denies travel to an Ebola-affected area in the 21 days before illness onset. - Family history:: not pertinent. - Hospitalizations: : No recent hospitalization is reported. Screenin:41 Abuse screen: Denies threats or abuse. Denies injuries from another. Nutritional hj screening: No deficits noted. Tuberculosis screening: No symptoms or risk factors identified. Fall Risk None identified. Assessment: 08:43 General: Appears in no apparent distress. uncomfortable, Behavior is calm, cooperative, hj appropriate for age. Pain: Complains of pain in abdomen. Neuro: Level of Consciousness is awake, alert, obeys commands, Oriented to person, place, time, situation, Appropriate for age. Cardiovascular: Capillary refill < 3 seconds Patient's skin is warm and dry. Respiratory: Airway is patent Respiratory effort is even, unlabored, Respiratory pattern is regular, symmetrical. GI: Abdomen is distended, Bowel sounds Abd is soft Abdomen is tender to palpation. : No signs and/or symptoms were reported regarding the genitourinary system. EENT: No signs and/or symptoms were reported regarding the EENT system. Derm: No signs and/or symptoms reported regarding the dermatologic system. Musculoskeletal: No signs and/or symptoms reported regarding the musculoskeletal system. 08:55 Reassessment: Patient and/or family updated on plan of care and expected duration. Pain hj level reassessed. Patient is alert, oriented x 3, equal unlabored respirations, skin warm/dry/pink. drinking oral contrast;. 09:01 Reassessment: pt finished drinking oral contrast; imaging notified;. hj 10:26 Reassessment: Patient and/or family updated on plan of care and expected duration. Pain hj level reassessed. Patient is alert, oriented x 3, equal unlabored respirations, skin warm/dry/pink. pt wheeled to CT;. 10:47 Reassessment: Patient and/or family updated on plan of care and expected duration. Pain pc1 level reassessed. Patient is alert, oriented x 3, equal unlabored respirations, skin warm/dry/pink. Wheeled back from CT. 11:08 Reassessment: Patient and/or family updated on plan of care and expected duration. Pain hj level reassessed. Patient is alert, oriented x 3, equal unlabored respirations, skin warm/dry/pink. awaiting POC;. 12:39 Reassessment: Patient and/or family updated on plan of care and expected duration. Pain hj level reassessed. Patient is alert, oriented x 3, equal unlabored respirations, skin warm/dry/pink. in room; provided with info on room at [facility]- room 1630, [address];. Vital Signs: 08:38 BP 163 / 99; Pulse 88; Resp 18; Temp 97.9(O); Pulse Ox 98% on R/A; Weight 67.59 kg; hj Height 6 ft. 0 in. (182.88 cm); 09:17 BP 156 / 97; Pulse 73; Resp 18; Pulse Ox 100% on R/A; hj 10:20 BP 148 / 92; Pulse 75; Resp 16; Pulse Ox 97% on R/A; pc1 11:08 BP 157 / 91; Pulse 74; Resp 18; Pulse Ox 98% on R/A; hj 12:39 BP 145 / 101; Pulse 75; Resp 18; Pulse Ox 97% on R/A; hj 08:38 Body Mass Index 20.21 (67.59 kg, 182.88 cm) hj ED Course: 08:26 Patient arrived in ED. mr 08:26 Delon Shields MD is Private Physician. mr 08:30 Ronald Montes MD is Attending Physician. rn 08:34 Hima Hatfield RN is Primary Nurse. hj 08:40 Triage completed. hj 08:42 Arm band placed on right wrist. hj 08:42 Patient has correct armband on for positive identification. Placed in gown. Bed in low hj position. Call light in reach. Side rails up X 1. Adult w/ patient. 08:47 Initial lab(s) drawn, by ED staff, sent to lab. First set of blood cultures drawn Sent pc1 to lab by nurse Rabago. 08:49 Inserted saline lock: 22 gauge in right antecubital area, using aseptic technique. pc1 09:12 Urine collected: Spencer catheter specimen, cloudy, uche colored. jb1 10:[address] mw3 10:39 CT completed. Patient tolerated procedure well. Patient moved back from CT. mw3 10:40 CT Abd/Pelvis - W/Contrast In Process Unspecified. EDMS 11:15 initiated a transfer with Marion Bolaños at the [facility] transfer center. eb 11:25 connected the urologist flight communications operator from [facility] with Dr. Montes for patient transfer eb consultation. 11:[address] Vasquez the General Surgeon flight communications operator for [facility] with Dr. Montes for eb patient transfer consultation. 11:49 NGT: inserted 16 Fr. via right nare. verified placement of air over stomach, verified hj return of gastric contents, flushed Patient tolerated well. 11:[address] Levin the hospitalist flight communications operator from [facility] with Dr. Montes for eb patient transfer consultation. 12:01 administrative approval given by Marion Bolaños/ Dr. Levin has accepted the patient in eb transfer/ patient going to bed 1630/ report to be called [phone]. 12:53 No provider procedures requiring assistance completed. Patient transferred, IV remains hj in place. intact. Administered Medications: 08:53 Drug: Zofran 4 mg Route: IVP; Site: right antecubital; hj 08:55 Follow up: Response: No adverse reaction hj 09:23 Drug: Rocephin - (cefTRIAXone) 1 grams Route: IVPB; Infused Over: 30 mins; Site: right pc1 antecubital; 09:45 Follow up: IV Status: Completed infusion hj 11:50 Drug: Zofran 4 mg Route: IVP; Site: right antecubital; hj 11:51 Follow up: Response: No adverse reaction Outcome: 11:29 ER care complete, transfer ordered by . rn 12:53 Attestation : i agree with SN Nehemias. 12:53 Transferred by ground EMS to [facility], Transfer form completed. X-rays sent w/ patient. 12:53 Condition: stable 12:53 Instructed on the need for transfer, Demonstrated understanding of instructions. 12:54 Patient left the ED. hj Addendum: 10/17/2018 07:48 Addendum: Culture Results: Positive urine culture. Phone call Attempt #1 FAXED urine s s culture report to [facility] ATTMirlande Garcia RN. Signatures: Dispatcher [employer] EDMS Tim Ramos1 Melissa Williamson Ronald Batista MD MD rn Smirch, Shelby, RN RN ss Joaquin, Henry, RN RN Marion Gonzalez Michelle 3 Mckee, Damian pc1 Corrections: (The following items were deleted from the chart) 10/14 08:44 08:42 GI: Bowel sounds Abd is soft Abd is non tender hj hj
--- NOTE | 2018-10-14 11:30 | EDPHYS ---
Physician Documentation [facility] Name: Quang Macedo Age: 83 yrs Sex: Male : 1935 Arrival Date: 10/14/2018 Time: 08:26 Bed 5 Private MD: Delon Shields V ED Physician Ronald Montes HPI: 10/14 08:49 This 83 yrs old Male presents to ER via Ambulatory with complaints of rn Abdominal Swelling, Vomiting. 08:49 The patient presents to the emergency department with nausea, vomiting, abdominal pain. rn Onset: The symptoms/episode began/occurred yesterday. Possible causes: unknown. Severity of symptoms: At their worst the symptoms were mild in the emergency department the symptoms are unchanged. The patient has experienced a previous episode. reports 1 day of abd distension and 3 episodes of vomiting, has had 2 normal bowel movements, similar symptoms in past, diagnosed with UTI and sepsis that time, came in to be safe. Seen by pcp last week but did not have these symptoms. . Historical: - Allergies: 08:41 No Known Allergies; hj - Home Meds: 08:41 aspirin 81 mg Oral chew 1 tab once daily [Active]; Proscar Oral [Active]; hj - PMHx: 08:41 BPH; High Cholesterol; hj - PSHx: 08:41 Hernia repair; hemorrhoidectomy; cataract surgery; hj - Immunization history:: Adult Immunizations up to date. - Social history:: Smoking status: Patient/guardian denies using tobacco, Patient/guardian denies using alcohol. - Ebola Screening: : Patient negative for fever greater than or equal to 101.5 degrees Fahrenheit, and additional compatible Ebola Virus Disease symptoms Patient denies exposure to infectious person Patient denies travel to an Ebola-affected area in the 21 days before illness onset. - Family history:: not pertinent. - Hospitalizations: : No recent hospitalization is reported. ROS: 08:49 Constitutional: Negative for fever, chills, and weight loss, Eyes: Negative for injury, rn pain, redness, and discharge, Neck: Negative for injury, pain, and swelling, Cardiovascular: Negative for chest pain, palpitations, and edema, Respiratory: Negative for shortness of breath, cough, wheezing, and pleuritic chest pain, Abdomen/GI: + abd distension and vomiting. MS/Extremity: Negative for injury and deformity, Skin: Negative for injury, rash, and discoloration, Neuro: Negative for headache, weakness, numbness, tingling, and seizure. Exam: 08:49 Constitutional: This is a well developed, well nourished patient who is awake, alert, rn and in no acute distress. Head/Face: Normocephalic, atraumatic. Eyes: Periorbital areas with no swelling, redness, or edema. ENT: MMM Cardiovascular: Regular rate and rhythm. No pulse deficits. Respiratory: Lungs have equal breath sounds bilaterally, clear to auscultation. No increased work of breathing, no retractions or nasal flaring. Abdomen/GI: soft, mild suprapubic tenderness, no rebound MS/ Extremity: Pulses equal, no cyanosis. Neurovascular intact. Full, normal range of motion. Equal circumference. Neuro: Awake and alert, GCS 15, oriented to person, place, and situation. Cranial nerves II-XII grossly intact. Motor strength 5/5 in all extremities. Sensory grossly intact. Vital Signs: 08:38 BP 163 / 99; Pulse 88; Resp 18; Temp 97.9(O); Pulse Ox 98% on R/A; Weight 67.59 kg; hj Height 6 ft. 0 in. (182.88 cm); 09:17 BP 156 / 97; Pulse 73; Resp 18; Pulse Ox 100% on R/A; hj 10:20 BP 148 / 92; Pulse 75; Resp 16; Pulse Ox 97% on R/A; pc1 11:08 BP 157 / 91; Pulse 74; Resp 18; Pulse Ox 98% on R/A; hj 12:39 BP 145 / 101; Pulse 75; Resp 18; Pulse Ox 97% on R/A; hj 08:38 Body Mass Index 20.21 (67.59 kg, 182.88 cm) MDM: 08:30 Patient medically screened. rn 11:14 ED course: Dr. 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 11:26 Differential diagnosis: SBO, bladder malignancy. Data reviewed: vital signs, nurses rn notes, lab test result(s), radiologic studies, CT scan, and as a result, I will admit patient. Counseling: I had a detailed discussion with the patient and/or guardian regarding: the historical points, exam findings, and any diagnostic results supporting the discharge/admit diagnosis, lab results, radiology results, the need for further work-up and treatment in the hospital, the need to transfer to another facility. Special discussion:. ED course: Pt accepted for transfer to [facility] for gen surg and urology care. . 10/14 08:36 Order name: CBC with Diff; Complete Time: 10:24 rn 10/14 08:36 Order name: Basic Metabolic Panel; Complete Time: 10:24 rn 10/14 08:36 Order name: Urine Culture rn 10/14 08:36 Order name: Urine Microscopic Only; Complete Time: 10:24 rn 10/14 08:36 Order name: Procalcitonin; Complete Time: 10:24 rn 10/14 08:36 Order name: Blood Culture Adult (2) rn 10/14 08:36 Order name: CT Abd/Pelvis - W/Contrast; Complete Time: 11:00 rn 10/14 08:36 Order name: LFT's; Complete Time: 10:24 rn 10/14 08:36 Order name: Lipase; Complete Time: 10:24 rn 10/14 09:13 Order name: Urine Dipstick--Ancillary (enter results) eb 10/14 09:13 Order name: Urine Dipstick-Ancillary; Complete Time: 10:24 EDMS 10/14 09:17 Order name: Manual Differential; Complete Time: 10:24 EDMS 10/14 08:36 Order name: IV Start; Complete Time: 08:53 rn 10/14 08:36 Order name: Urine Dipstick-Ancillary (obtain specimen); Complete Time: 09:12 rn 10/14 11:15 Order name: NG Tube; Complete Time: 11:48 rn Administered Medications: 08:53 Drug: Zofran 4 mg Route: IVP; Site: right antecubital; hj 08:55 Follow up: Response: No adverse reaction hj 09:23 Drug: Rocephin - (cefTRIAXone) 1 grams Route: IVPB; Infused Over: 30 mins; Site: right pc1 antecubital; 09:45 Follow up: IV Status: Completed infusion hj 11:50 Drug: Zofran 4 mg Route: IVP; Site: right antecubital; hj 11:51 Follow up: Response: No adverse reaction hj Disposition: 10/14/18 11:29 Transfer ordered to [facility]. Diagnosis are Mechanical Small bowel obstruction, Bladder mass, Urinary tract infection, site not specified. - Reason for transfer: Higher level of care. - Accepting physician is Dr. Levin. - Condition is Stable. - Problem is new. - Symptoms have improved. Signatures: Dispatcher [employer] EDMS Ronald Montes MD MD rn Joaquin, Henry, Damian Wilde RN Corrections: (The following items were deleted from the chart) 11:29 11:29 10/14/2018 11:29 Transfer ordered to [facility]. Diagnosis is rn Mechanical Small bowel obstruction; Bladder mass. Reason for transfer: Higher level of care. Accepting physician is . Condition is Stable. Problem is new. Symptoms have improved. rn 11:56 11:29 10/14/2018 11:29 Transfer ordered to [facility]. Diagnosis is rn Mechanical Small bowel obstruction; Bladder mass; Urinary tract infection, site not specified. Reason for transfer: Higher level of care. Accepting physician is . Condition is Stable. Problem is new. Symptoms have improved. rn 12:54 11:56 10/14/2018 11:29 Transfer ordered to [facility]. Diagnosis is hj Mechanical Small bowel obstruction; Bladder mass; Urinary tract infection, site not specified. Reason for transfer: Higher level of care. Accepting physician is Dr. Levin. Condition is Stable. Problem is new. Symptoms have improved. rn
[2018-10-14 13:02] VITALS: TEMP 97.9
[2018-10-14 13:08] VITALS: BP 145/101; O2SAT 97
== END 2018-10-14 12:54 | disposition short-term general hospital (02) ==
LOC: ER 08:23
DX: K56.699 Other intestinal obstruction unspecified as to partial versus complete obstruction (principal); N39.0 Urinary tract infection, site not specified; N32.9 Bladder disorder, unspecified; E78.00 Pure hypercholesterolemia, unspecified; Z79.82 Long term (current) use of aspirin
CPT/HCPCS: 96365; 87040 ×2; 87088; 85025; 87086; 80048; 36415; 80076; 87077; 87186; 83690; 84145; 74177; 96375; 99285; Q9967; J0696; J2405; 81003; 81015